=== PATIENT | male | born 1975 | race Caucasian/White ===

== ENCOUNTER 2021-04-28 18:00 | Observation (INO) ==
[2021-04-28] MEDS ORDERED: Aspirin 81 MG TAB.CHEW PO ONE (18:13)
[2021-04-28 18:41] LABS: Hematocrit 41.3 % (37.5-50.1); Hemoglobin 13.1 g/dL (12.9-16.9); Mean Corpuscular HGB Conc 31.7 g/dL (31.6-35.5); Mean Corpuscular Volume 82.1 fL (83.0-100.0); Mean Platelet Volume 11.2 fL (9.4-12.4); Platelet Count 214 K/mcL (140-400); Red Blood Count 5.03 M/mcL (4.19-5.50); Red Cell Distribution Width 15.1 % (11.5-14.5); Segmented Neutrophils % 64.8 %; White Blood Count 7.8 K/mcL (4.3-11.1)
[2021-04-28 18:42] LABS: Basophils % 0.4 %; Eosinophils # 0.1 K/mcL (0.0-0.6); Eosinophils % 1.7 %; Immature Granulocytes % 0.5 % (0-4); Lymphocytes # 1.7 K/mcL (0.6-4.6); Lymphocytes % 21.7 %; Monocytes # 0.9 K/mcL (0.0-1.3); Monocytes % 10.9 %
[2021-04-28] MEDS ORDERED: Nitroglycerin 0.4 MG TAB.SUBL SL ONE (18:48)
[2021-04-28 18:54] LABS: INR 0.9; Prothrombin Time 10.2 Seconds (9.4-12.1)
[2021-04-28 18:57] LABS: Activated Partial Thrombo Time 30.8 Seconds (26.0-36.0)
[2021-04-28 18:59] LABS: Albumin 4.1 g/dL (3.5-5.7); Albumin/Globulin Ratio 1.8 (1.1-2.2); Bilirubin,Indirect 0.2 mg/dL (0.0-1.0); Bilirubin,Total 0.2 mg/dL (0.3-1.0); Globulin 2.3 g/dL (2.4-3.5); Total Protein 6.4 g/dL (6.4-8.9)
[2021-04-28 19:01] LABS: BUN/Creatinine Ratio 21 (6-26); Blood Urea Nitrogen 17 mg/dL (6-20); Calcium 8.7 mg/dL (8.6-10.3); Carbon Dioxide 27 mEq/L (23-29); Chloride 104 mEq/L (98-107); Glucose 93 mg/dL (70-105); Osmolality,Calculated 289 (280-300); Sodium 139 mEq/L (136-145); Troponin I < 0.03 ng/mL (< 0.04); eGFR For African Americans > 60 (> 60); eGFR For Non-African Americans > 60 (> 60)
[2021-04-28] MEDS ORDERED: Isovue-370 500 ML BOTTLE IVP ONE (19:33)
[2021-04-28 21:05] LABS: Bilirubin,Urine Negative (Negative); Blood,Urine Negative (Negative); Clarity,Urine Clear (Clear); Color,Urine Light-Yellow (Yellow); Glucose,Urine (UA) Normal (Normal); Ketones,Urine Negative (Negative); Leukocyte Esterase,Urine Negative (Negative); Nitrite,Urine Negative (Negative); PH,Urine 6.5 pH Units (5.0-8.0); Protein,Urine Negative (Neg-Trace); Urobilinogen,Urine Normal (Normal)
[2021-04-28] MEDS ORDERED: Morphine Sulfate 2 MG/ML SYRINGE IVP ONE (22:53)
[2021-04-29] MEDS ORDERED: ALPRAZolam 1 MG TABLET PO PRN (00:34)
[2021-04-29] MEDS ORDERED: Perflutren Lipid Microsphere 1.3 ML in 0.9 % Sodium Chloride 8.7 ML IVP PRN (01:12)
[2021-04-29] MEDS: Ondansetron 4 MG/2 ML VIAL IVP PRN ×2 (01:22→19:40)
[2021-04-29] MEDS: Morphine Sulfate 2 MG/ML SYRINGE IVP PRN ×4 (01:23→19:40)
[2021-04-29] MEDS ORDERED: *HR* Heparin 5,000 UNIT/ML VIAL IVP PRN ×2 (01:39)
[2021-04-29] MEDS ORDERED: *HR* Heparin 5,000 UNIT/ML VIAL IVP ONE (01:39)
[2021-04-29] MEDS ORDERED: Acetaminophen 325 MG TABLET PO PRN (01:44)
[2021-04-29] MEDS ORDERED: Naloxone 0.4 MG/ML INJ IVP PRN (01:44)
[2021-04-29] MEDS ORDERED: Heparin 25,000UNIT/250ML 1/2NS 25,000 UNIT/250 ML IV.SOLN IVC SCH (01:45)
[2021-04-29] MEDS ORDERED: *HR* LORazepam 2 MG/ML VIAL IVP ONE ×2 (03:03→14:23)
[2021-04-29] MEDS ORDERED: *HR* Heparin 5,000 UNIT/ML VIAL SQ SCH (06:00)
[2021-04-29 06:05] LABS: Hematocrit 41.9 % (37.5-50.1); Hemoglobin 12.8 g/dL (12.9-16.9); Mean Corpuscular HGB Conc 30.5 g/dL (31.6-35.5); Mean Corpuscular Hemoglobin 25.5 pg (28.0-33.3); Mean Corpuscular Volume 83.6 fL (83.0-100.0); Mean Platelet Volume 11.5 fL (9.4-12.4); Platelet Count 200 K/mcL (140-400); Red Blood Count 5.01 M/mcL (4.19-5.50); Red Cell Distribution Width 15.5 % (11.5-14.5); White Blood Count 6.3 K/mcL (4.3-11.1)
[2021-04-29 06:14] LABS: INR 1.1
[2021-04-29 06:20] LABS: Activated Partial Thrombo Time 77.3 Seconds (26.0-36.0)
[2021-04-29 06:29] LABS: BUN/Creatinine Ratio 17 (6-26); Blood Urea Nitrogen 16 mg/dL (6-20); Calcium 8.7 mg/dL (8.6-10.3); Carbon Dioxide 29 mEq/L (23-29); Chloride 104 mEq/L (98-107); Chol/HDL Ratio 3.5 (0-4.9); Cholesterol 170 mg/dL (< 200); Glucose 99 mg/dL (70-105); HDL Cholesterol 48 mg/dL (40-59); LDL Cholesterol,Calculated 82 mg/dL (< 100); Osmolality,Calculated 289 (280-300); Potassium 4.2 mEq/L (3.5-5.1); Sodium 139 mEq/L (136-145); Triglycerides 202 mg/dL (< 150); eGFR For African Americans > 60 (> 60); eGFR For Non-African Americans > 60 (> 60)
[2021-04-29 06:38] LABS: Thyroid Stimulating Hormone 5.788 mcIU/mL (0.340-5.600)
[2021-04-29 06:49] LABS: Folate 20.4 ng/mL (3.0-16.0)
[2021-04-29] MEDS ORDERED: Regadenoson 0.4 MG/5 ML SYRINGE IVP ONE (07:03)
[2021-04-29 08:58] LABS: Amphetamine Screen,Urine Negative ng/mL (Cutoff=1000); Barbiturate Screen,Urine Negative ng/mL (Cutoff=200); Benzodiazepines Screen,Urine Positive ng/mL (Cutoff=200); Cannabinoid Screen,Urine Negative ng/mL (Cutoff = 50); Cocaine Screen,Urine Negative ng/mL (Cutoff= 300); Opiate Screen,Urine Positive ng/mL (Cutoff=300); Phencyclidine Screen,Urine Negative ng/mL (Cutoff=25)
[2021-04-29] MEDS: Aspirin Enteric Coated 81 MG Tablet PO SCH (10:19)
[2021-04-29] MEDS: Loratadine 10 MG TABLET PO SCH (10:20)
[2021-04-29 10:51] LABS: Estimated Average Glucose 134 mg/dl; Hemoglobin A1C 6.3 %
[2021-04-29] MEDS ORDERED: Isovue-370 500 ML BOTTLE IVP ONE (14:24)
[2021-04-29] MEDS: Isosorbide MONOnitrate (24 HR) 30 MG TAB.ER.24H PO SCH (19:39)
[2021-04-30] MEDS: Morphine Sulfate 2 MG/ML SYRINGE IVP PRN (03:14)
[2021-04-30 06:43] LABS: Hematocrit 43.3 % (37.5-50.1); Hemoglobin 13.2 g/dL (12.9-16.9); Mean Corpuscular HGB Conc 30.5 g/dL (31.6-35.5); Mean Corpuscular Hemoglobin 25.6 pg (28.0-33.3); Mean Corpuscular Volume 84.1 fL (83.0-100.0); Mean Platelet Volume 12.2 fL (9.4-12.4); Platelet Count 203 K/mcL (140-400); Red Blood Count 5.15 M/mcL (4.19-5.50); Red Cell Distribution Width 15.6 % (11.5-14.5); White Blood Count 7.2 K/mcL (4.3-11.1)
[2021-04-30 07:36] LABS: BUN/Creatinine Ratio 17 (6-26); Blood Urea Nitrogen 16 mg/dL (6-20); Calcium 9.6 mg/dL (8.6-10.3); Carbon Dioxide 28 mEq/L (23-29); Chloride 101 mEq/L (98-107); Glucose 92 mg/dL (70-105); Osmolality,Calculated 283 (280-300); Potassium 4.7 mEq/L (3.5-5.1); Sodium 136 mEq/L (136-145); eGFR For African Americans > 60 (> 60); eGFR For Non-African Americans > 60 (> 60)
[2021-04-30 07:46] VITALS: TEMP 97.8
[2021-04-30] MEDS ORDERED: Isovue-370 500 ML BOTTLE IVP ONE (09:53)
[2021-04-30] MEDS ORDERED: Nitroglycerin 0.4 MG TAB.SUBL SL PRN (09:59)
[2021-04-30 10:03] VITALS: PULSE 50
[2021-04-30 10:04] VITALS: BP 123/70; O2SAT 92
[2021-04-30] MEDS: Isosorbide MONOnitrate (24 HR) 30 MG TAB.ER.24H PO SCH (10:52)
[2021-04-30] MEDS: Loratadine 10 MG TABLET PO SCH (10:52)
[2021-04-30] MEDS: Aspirin Enteric Coated 81 MG Tablet PO SCH (10:52)
== END 2021-04-30 11:39 | disposition home or self-care (01) ==
LOC: 3BNU 18:00 → EMEROOARM 18:00 → 3BNU 04-29 00:17
PROVIDERS: ADMIT Internal Medicine; ATTEND Internal Medicine